=== PATIENT | female | born 1980 | race Two or more races ===

== ENCOUNTER 2022-11-30 10:28 | Emergency (ER) | payer OTHER ==
[~2022-11-30] VITALS: Ht 165.1 cm; Wt 95.7 kg
[2022-11-30] MEDS ORDERED: ONDANSETRON HCL/PF 4 MG/2 ML VIAL ONE (10:59)
[2022-11-30] MEDS ORDERED: MORPHINE SULFATE INJ 2 MG/ML DISP.SYRIN IV ONE (11:00)
[2022-11-30] MEDS ORDERED: MORPHINE SULFATE INJ 4 MG/ML DISP.SYRIN ONE (11:00)
[2022-11-30] MEDS ORDERED: ONDANSETRON HCL/PF 4 MG/2 ML VIAL IVP ONE (11:00)
--- NOTE | 2022-11-30 11:00 | NUR ---
[id number] C/O CHEST/ABDOMEN PRESSURE WHILE AT WORK. HYPERTENSIVE, NITRO X1 AND ASPIRIN 324MG GIVEN STOCK PREPARER. PLACED IN BED, AAOX4, BREATHING EVEN AND UNLABORED SATURATING AT 98%RA, ATTACHED TO MONITOR NORMAL SINUS RHYTYM UT- 76
--- NOTE | 2022-11-30 11:02 | NUR ---
PATIENT TAKEN TO CT VIA [facility]
--- NOTE | 2022-11-30 11:20 | NUR ---
BLOOD DRAWN AND SENT TO LAB
[2022-11-30 11:36] LABS: BASOPHILS % (AUTO) 0.1 % (0.0-2.0); EOSINOPHILS % (AUTO) 1.9 % (0.0-6.0); HEMATOCRIT 42 % (33-45); HEMOGLOBIN 13.8 g/dL (11.5-14.8); LYMPHOCYTES # (AUTO) 1.1 K/uL (0.8-4.8); MEAN CORPUSCULAR HGB CONC 33 g/dl (31.0-36.0); MEAN CORPUSCULAR VOLUME 89 fL (82-100); MONOCYTES # (AUTO) 0.4 K/uL (0.1-1.30); NEUTROPHILS # (AUTO) 7.4 K/uL (1.8-8.9); PLATELET COUNT (AUTO) 169 K/uL (150-450); RED BLOOD CELL COUNT(AUTO) 4.75 MIL/uL (4.0-5.2); WHITE BLOOD COUNT (AUTO) 9.1 K/uL (4.3-11.0)
--- NOTE | 2022-11-30 11:49 | NUR ---
URINE SAMPLE SENT TO LAB
[2022-11-30 11:50] LABS: CALCIUM, SERUM 8.9 mg/dL (8.5-10.1); CARBON DIOXIDE 26 mmol/L (21-32); CHLORIDE 102 mmol/L (98-107); CREATININE 0.7 mg/dL (0.6-1.3); GLUCOSE 139 mg/dL (74-106); POTASSIUM 4.1 mmol/L (3.5-5.1); SODIUM SERUM 137 mmol/L (136-145); UREA NITROGEN, BLOOD 10 mg/dL (7-18)
[2022-11-30 11:56] LABS: ALANINE AMINOTRANSFERASE 62 U/L (12-78); ALKALINE PHOSPHATASE 128 U/L (46-116); ASPARTATE AMINOTRANSFERASE 71 U/L (15-37); BILIRUBIN,DIRECT 0.6 mg/dL (0.0-0.2); BILIRUBIN,TOTAL 1.2 mg/dL (0.2-1.0); LIPASE 69 U/L (73-393); TOTAL PROTEIN, SERUM 7.7 g/dL (6.4-8.2)
[2022-11-30 12:13] LABS: ALBUMIN 3.8 g/dL (3.4-5.0)
[2022-11-30 13:02] LABS: BILIRUBIN,URINE NEGATIVE (NEGATIVE); COLOR,URINE YELLOW (YELLOW); LEUKOCYTE ESTERASE ,URINE NEGATIVE (NEGATIVE); NITRITE, URINE NEGATIVE (NEGATIVE); PROTEIN,URINE NEGATIVE (NEGATIVE); UGLUCOSE NEGATIVE (NEGATIVE); UROBILINOGEN,URINE 0.2 EU/dL (0.2)
[2022-11-30] MEDS ORDERED: IBUP-1955 PO (14:34)
[2022-11-30] MEDS ORDERED: TRAM50TA2 PO (14:34)
--- NOTE | 2022-11-30 14:40 | NUR ---
IV removed. Catheter intact and site benign. Pressure and 4x4 applied to site. No bleeding noted.Patient discharged to home in stable condition. Written and verbal after care instructions given. Patient verbalizes understanding of instruction.
[2022-11-30 15:00] VITALS: BP 135/75
== END 2022-11-30 14:40 | disposition home or self-care (01) ==
LOC: ER 10:48
DX: K80.50 Calculus of bile duct without cholangitis or cholecystitis without obstruction (principal); I10 Essential (primary) hypertension
CPT/HCPCS: 36415; 71045-TC; 76705-TC; 80048-TC; 80076-TC; 83690-TC; 84484-TC; 84703-TC; 85025-TC; J2270; J2405